=== PATIENT | female | born 1995 | race Caucasian/White ===

== ENCOUNTER 2019-04-30 07:39 | Emergency (ER) | payer OTHER, MEDICAID ==
[~2019-04-30] VITALS: Ht 162.6 cm; Wt 54.4 kg
[2019-04-30 07:44] VITALS: BP 110/67; Ht 162.6 cm; Wt 54.4 kg
== END 2019-04-30 08:26 | disposition home or self-care (01) ==
LOC: ED 07:39
DX: L25.9 Unspecified contact dermatitis, unspecified cause (principal)